=== PATIENT | female | born 1990 | race Caucasian/White ===

== ENCOUNTER 2018-04-04 11:44 | Emergency (ER) | payer SELFPAY ==
[2018-04-04 11:53] VITALS: BP 116/77; PULSE 95; RESP 18; TEMP 98.4
--- NOTE | 2018-04-04 12:45 | ED ---
ENT HPI - General Chief complaint: ENT Stated complaint: Sore Throat Time Seen by Provider: 04/04/18 11:57 Source: patient Mode of arrival: ambulatory Limitations: no limitations - History of Present Illness Initial comments: This is a 27-year-old female with no past medical history who presents today for chief complaint of sore throat times 2 days. Patient stated that she first noticed a mild sore throat on Monday evening, however that over the course of the past 2 days the pain has been increasing. In addition she has a cough and feels as though she has some postnasal drip. When she woke up this morning she noticed redness and white dots on the back of her palate she was concerned she has strep throat so she presents to the emergency department, because she is out of town and has no primary care here. Patient denies any fever, chills, photophobia, neck rigidity or pain, fatigue, headache, nausea, vomiting or any other associated symptoms. In addition patient denies any recent shortness of breath, chest pain, back pain, abdominal pain, nausea or vomiting, numbness or tingling, dysuria or hematuria, constipation or diarrhea, headaches or visual changes, or any other complaints. - Related Data Home Medications Medication Instructions Recorded Confirmed Norethindrone-E.estradiol-Iron 1 each PO DAILY 04/04/18 04/04/18 [Junel Fe 1 mg-20 Mcg Tablet] Previous Rx's Medication Instructions Recorded predniSONE 20 mg PO DAILY 3 Days #3 tab 04/04/18 Allergies Allergy/AdvReac Type Severity Reaction Status Date / Time blueberry Allergy Swelling Verified 04/04/18 11:53 cefaclor [From Ceclor] Allergy Unknown Verified 04/04/18 11:53 Childhood Review of Systems ROS Statement: Those systems with pertinent positive or pertinent negative responses have been documented in the HPI. ROS Other: All systems not noted in ROS Statement are negative. Constitutional: Denies: fever, chills, weakness Eyes: Denies: eye pain ENT: Reports: as per HPI, throat pain. Denies: ear pain Respiratory: Reports: cough. Denies: dyspnea Cardiovascular: Denies: chest pain Endocrine: Denies: fatigue Gastrointestinal: Denies: abdominal pain, nausea, vomiting, diarrhea, constipation Genitourinary: Denies: urgency, dysuria, frequency, hematuria Skin: Denies: rash, lesions Neurological: Denies: headache, weakness Past Medical History Past Medical History: No Reported History History of Any Multi-Drug Resistant Organisms: None Reported Past Surgical History: No Surgical Hx Reported Past Psychological History: No Psychological Hx Reported Smoking Status: Current every day smoker Past Alcohol Use History: None Reported Past Drug Use History: None Reported General Exam - General Exam Comments Initial Comments: General: The patient is awake and alert, in no distress, and does not appear acutely ill. Eye: Pupils are equal, round and reactive to light, extra-ocular movements are intact. No nystagmus. There is normal conjunctiva bilaterally. No signs of icterus. Ears, nose, mouth and throat: There are moist mucous membranes. Uvula midline without deviation. Erythema to the oropharynx and tonsils. White exudates on the soft palate. Postnasal drip. Nares patent. Neck: The neck is supple, there is no tenderness or JVD. Mild Submandibular and anterior cervical lymphadenopathy, no tenderness to palpation. No nuchal rigidity. Cardiovascular: There is a regular rate and rhythm. No murmur, rub or gallop is appreciated. Respiratory: Lungs are clear to auscultation, respirations are non-labored, breath sounds are equal. No wheezes, stridor, rales, or rhonchi. Neurological: A&O x 3. CN II-XII intact, There are no obvious motor or sensory deficits. Coordination appears grossly intact. Speech is normal. Skin: Skin is warm and dry and no rashes or lesions are noted. Psychiatric: Cooperative, appropriate mood & affect, normal judgment. Limitations: no limitations Course Vital Signs 04/04/18 11:50 Temperature 98.4 F Pulse Rate 95 Respiratory 18 Rate Blood Pressure 116/77 O2 Sat by Pulse 97 Oximetry Medical Decision Making - Medical Decision Making 27-year-old female with no past medical history who presents today for chief complaint of sore throat and white soft palate exudates. Rapid strep was . Case was discussed in detail with Dr. Le. At this time feels that the patient - Lab Data Lab Results 04/04/18 Range/Units 12:20 Group A Strep Rapid Negative (Negative) Disposition Clinical Impression: Acute viral pharyngitis Disposition: HOME SELF-CARE Condition: Good Instructions: Pharyngitis (ED) Additional Instructions: Please use medication as discussed. Please follow-up with family doctor in the next 2 days of symptoms have not improved. Please return to emergency room if the symptoms increase or worsen or for any other concerns. Prescriptions: predniSONE 20 mg PO DAILY 3 Days #3 tab Is patient prescribed a controlled substance at d/c from ED?: No Referrals: None,Stated [Primary Care Provider] - 1-2 days Time of Disposition: 13:09
== END 2018-04-04 13:44 | disposition home or self-care (01) ==
LOC: EC 11:44
DX: J02.8 Acute pharyngitis due to other specified organisms (principal); F17.200 Nicotine dependence, unspecified, uncomplicated; Z79.3 Long term (current) use of hormonal contraceptives; Z88.1 Allergy status to other antibiotic agents; Z91.018 Allergy to other foods
CPT/HCPCS: 87081; 87430; 99283